=== PATIENT | male | born 1970 | race Caucasian/White ===

== ENCOUNTER 2024-07-24 03:51 | Emergency (ER) | payer OTHER, MEDICAID ==
[~2024-07-24] VITALS: Ht 172.7 cm; Wt 63.5 kg
[2024-07-24 04:10] LABS: BASOPHILS # (AUTO) 0.1 K/UL (0.0-0.2); BASOPHILS % (AUTO) 0.6 % (0.0-2.0); EOSINOPHILS # (AUTO) 0.1 K/uL (0.0-0.7); EOSINOPHILS % (AUTO) 0.7 % (0.0-7.0); HEMATOCRIT 40.8 % (36.7-47.1); HEMOGLOBIN 13.5 g/dL (12.5-16.3); LYMPHOCYTES # (AUTO) 2.1 K/uL (0.8-4.8); LYMPHOCYTES % (AUTO) 19.8 % (20.5-51.5); MEAN CORPUSCULAR HEMOGLOBIN 24.8 uug (23.8-33.4); MEAN CORPUSCULAR HGB CONC 33 g/dL (32.5-36.3); MEAN CORPUSCULAR VOLUME 74.8 fL (73.0-96.2); MONOCYTES # (AUTO) 0.8 K/uL (0.1-1.30); MONOCYTES % (AUTO) 7.3 % (0.0-11.0); NEUTROPHILS # (AUTO) 7.6 K/uL (1.8-8.9); NEUTROPHILS % (AUTO) 71.6 % (38.5-71.5); PLATELET COUNT (AUTO) 143 K/uL (152-348); RED BLOOD CELL COUNT(AUTO) 5.46 MIL/uL (4.06-5.63); RED CELL DISTRIBUTION WIDTH 14.6 % (12.1-16.2); WHITE BLOOD COUNT (AUTO) 10.6 K/uL (3.6-10.2)
[2024-07-24] MEDS ORDERED: PROCHLORPERAZINE EDISYLATE 10 MG/2 ML VIAL ONE (04:10)
[2024-07-24] MEDS ORDERED: diphenhydrAMINE 50 MG/1 ML VIAL ONE (04:10)
[2024-07-24] MEDS ORDERED: LORAZEPAM 2 MG/1 ML VIAL ONE (04:11)
[2024-07-24 04:16] LABS: DIFFERENTIAL COMMENT 1
[2024-07-24 04:27] LABS: CALCIUM 8.5 mg/dL (8.5-10.1); CREATININE 1.2 mg/dL (0.6-1.3)
[2024-07-24] MEDS: LORAZEPAM 2 MG/1 ML VIAL IV ONE (04:28)
[2024-07-24] MEDS: IV NORMAL SALINE 1000 ML BAG IV ONE (04:28)
[2024-07-24] MEDS: diphenhydrAMINE 50 MG/1 ML VIAL IV ONE (04:29)
[2024-07-24] MEDS: PROCHLORPERAZINE EDISYLATE 10 MG/2 ML VIAL IV ONE (04:29)
[2024-07-24 04:34] LABS: ALBUMIN 3.8 g/dL (3.4-5.0); BILIRUBIN,DIRECT 0.1 mg/dL (0.0-0.2); BILIRUBIN,TOTAL 0.4 mg/dL (0.2-1.0); TOTAL PROTEIN, SERUM 6.9 g/dL (6.4-8.2)
[2024-07-24 04:59] LABS: EOSINOPHILS % (MANUAL) 1 % (0-8); LYMPHOCYTES % (MANUAL) 25 % (20-40); MONOCYTES % (MANUAL) 5 % (2-10); NEUTROPHILS % (MANUAL) 69 % (42-75); PLATELET ESTIMATE ADEQUATE
[2024-07-24 05:00] LABS: ANISOCYTOSIS 1+; HYPOCHROMASIA 1+
[2024-07-24] MEDS ORDERED: MECL-159 PO (05:48)
[2024-07-24] MEDS ORDERED: ONDA4TAB11 PO (05:52)
[2024-07-24 11:54] VITALS: BP 119/77; TEMP 97.8; O2SAT 98
== END 2024-07-24 12:22 | disposition home or self-care (01) ==
LOC: ER 03:58
DX: R11.10 Vomiting, unspecified (principal); R07.89 Other chest pain; R94.31 Abnormal electrocardiogram [ECG] [EKG]; E11.9 Type 2 diabetes mellitus without complications
CPT/HCPCS: 99285; 96374; 96375; 71045; 96361; 80076; 80048; 83690; 85025; 84484 ×4; 36415; 93005; 85007; J1200; J2060; J0780; J7040; 70030-TC; A4606; A4663